=== PATIENT | female | born 1965 | race Caucasian/White ===

== ENCOUNTER → 2017-11-11 | Outpatient (CLI) | payer OTHER | LOC: M WHC 13:12 | DX: Z12.31 Encounter for screening mammogram for malignant neoplasm of breast (principal) | CPT/HCPCS: 77067 ==

== ENCOUNTER → 2019-10-06 | Outpatient (REF) | payer OTHER ==
[2019-10-06 19:00] LABS: AMORPHOUS SEDIMENT SMALL (NEGATIVE); APPEARANCE, URINE TURBID (CLEAR); BACTERIA, URINE AUTO 1+ (NEGATIVE); BILIRUBIN, URINE AUTO NEGATIVE (NEGATIVE); BLOOD, URINE BLOOD NEGATIVE (NEGATIVE); COLOR, URINE AMBER (YELLOW); GLUCOSE, URINE (UA) AUTO NEGATIVE (NEGATIVE); KETONE, URINE AUTO NEGATIVE (NEGATIVE); LEUKOCYTE ESTERASE, URINE AUTO NEGATIVE (NEGATIVE); MUCUS, URINE SMALL (NEGATIVE); NITRITE, URINE AUTO NEGATIVE (NEGATIVE); PROTEIN, URINE AUTO NEGATIVE (NEGATIVE); RBC, URINE AUTO 0 /HPF (0-3); SPECIFIC GRAVITY URINE AUTO 1.018 (1.002-1.035); SQUAMOUS EPITHELIAL CELL UR AU 3 /HPF (0-6); UROBILINOGEN, URINE AUTO 0.2 mg/dL (0.0-2.0); WBC, URINE AUTO 3 /HPF (0-3)
== END ==
LOC: M SMT 17:24
PROVIDERS: ATTEND Nurse Practitioner Women's Health
DX: R30.0 Dysuria (principal)

== ENCOUNTER → 2019-10-13 | Outpatient (CLI) | payer OTHER ==
--- NOTE | 2019-10-14 03:49 | REP ---
Clinical: Dysuria. Frequent urinary tract infection. Technique: Real time carballo scale evaluation using curved array transducer. Findings: Bilateral kidneys are normal in contour, size, echogenicity and reniform shape without hydronephrosis, nephrolithiasis, cystic or renal mass lesion. No perinephric fluid collection. Right kidney measures 10.4 x 5.5 x 4.6 cm. Left kidney measures 10.4 x 4.2 x 5.2 cm. Impression: Normal renal ultrasound. Electronically Signed by Miguelito Herrera MD 10/14/2019 03:40 A
--- NOTE | 2019-10-14 03:51 | REP ---
Clinical: Dysuria. Frequent urinary tract infection. Technique: Real time carballo scale and color evaluation using curved array transducer. Findings: Bladder is normal in appearance without wall thickening or obvious mass lesion. During examination, the bladder was incompletely distended. Prevoid bladder measures 101 ml. Postvoid images demonstrate complete emptying. Impression: Limited examination. No obvious abnormality. Electronically Signed by Miguelito Herrera MD 10/14/2019 03:42 A
== END ==
LOC: M RAD 13:36
PROVIDERS: ATTEND Nurse Practitioner Women's Health
DX: R30.0 Dysuria (principal); N39.0 Urinary tract infection, site not specified

== ENCOUNTER 2020-07-17 10:04 | Emergency (ER) | payer OTHER ==
[~2020-07-17] VITALS: Ht 160 cm; Wt 95.6 kg
[2020-07-17] MEDS ORDERED: SERT-138 PO (10:29)
[2020-07-17 10:36] LABS: BASO # 0.1 10^3/uL (0.0-0.2); BASO % 0.9 % (0.0-1.0); EOS # 0.2 10^3/uL (0.0-0.5); EOS % 2.3 % (0.0-3.0); HEMATOCRIT 29.8 % (36.0-47.0); HEMOGLOBIN 7.9 g/dl (12.0-15.5); LYMPH % 26.3 % (24.0-44.0); MEAN CORPUSCULAR HGB CONC 26.5 g/dl (32.0-36.5); MEAN CORPUSCULAR VOLUME 67.9 fl (80.0-96.0); MONO # 0.6 10^3/uL (0.0-0.8); NEUTROPHILS # 4.8 10^3/uL (1.5-8.5); NEUTROPHILS % 61.5 % (36.0-66.0); PLATELET COUNT, AUTOMATED 233 10^3/uL (150-450); RED BLOOD COUNT 4.39 10^6/uL (4.00-5.40); WHITE BLOOD COUNT 7.7 10^3/uL (4.0-10.0)
[2020-07-17] MEDS ORDERED: GI COCKTAIL 50ML BTL(HYOSCYAMINE/MAALOX/LIDOCAINE VISCOUS)(1:3:1) PO ONE (10:45)
[2020-07-17 10:46] LABS: INR 0.89; PROTHROMBIN TIME 12.2 SECONDS (12.5-14.3)
[2020-07-17 10:47] LABS: PARTIAL THROMBOPLASTIN TIME 25.3 SECONDS (24.2-38.5)
[2020-07-17 11:10] LABS: BLOOD UREA NITROGEN 12 MG/DL (7-18); CALCIUM LEVEL 9.2 MG/DL (8.5-10.1); CARBON DIOXIDE LEVEL 24 MEQ/L (21-32); CHLORIDE LEVEL 106 MEQ/L (98-107); CREATININE FOR GFR 0.77 MG/DL (0.55-1.30); GLOMERULAR FILTRATION RATE > 60.0 (>51); GLUCOSE, FASTING 99 MG/DL (70-100); POTASSIUM SERUM 4.2 MEQ/L (3.5-5.1); SODIUM LEVEL 139 MEQ/L (136-145)
[2020-07-17 11:11] LABS: ALBUMIN 3.6 GM/DL (3.2-5.2); ALT/SGPT 28 U/L (12-78); BILIRUBIN,DIRECT 0.2 MG/DL (0.0-0.2); BILIRUBIN,TOTAL 0.5 MG/DL (0.2-1.0); CK-MB VALUE MASS 1.8 NG/ML (<3.6); CPK CREATINE PHOSPHOKINASE 71 U/L (26-192); FREE T4 0.83 NG/DL (0.76-1.46); LIPASE 161 U/L (73-393); MB/CK RELATIVE INDEX 2.54 (< OR =4); TOTAL PROTEIN 7.2 GM/DL (6.4-8.2); TROPONIN I < 0.02 NG/ML (< 0.10)
--- NOTE | 2020-07-17 11:12 | REP ---
INDICATION: CHEST PAIN. COMPARISON: 11/18/2008. TECHNIQUE: SINGLE PORTABLE AP VIEW OF THE CHEST WAS PERFORMED. FINDINGS: There is mild elevation of the right knee diaphragm. There is mild linear fibro atelectatic change in each lung base. No acute infiltrate or pulmonary edema is seen. The heart is normal in size. The mediastinal silhouette is unchanged. Metallic clips are seen in the upper abdomen. IMPRESSION: NO ACUTE PULMONARY DISEASE. <Electronically signed by John Sung > 07/17/20 [id number]
[2020-07-17] MEDS ORDERED: ISOVUE-370 76% 100ML VIAL As Ordered ONE (11:17)
--- NOTE | 2020-07-17 12:14 | REP ---
INDICATION: left sided chest pain. COMPARISON: None. TECHNIQUE: CT angiogram chest performed following the intravenous administration of 100 cc of Isovue 370. Sagittal and coronal reconstruction images are performed. FINDINGS: Lungs: There is mild bibasilar fibro atelectatic change, although underlying pneumonitis cannot be excluded.. Mediastinum: No adenopathy. Pulmonary arteries: No evidence of pulmonary embolism. Elvira: No adenopathy. Axilla: No adenopathy. Pleura: No effusion. Heart: Not enlarged. Thoracic aorta: No aneurysm or dissection. Upper abdominal structures: Prior gastric surgery. Visualized osseous structures: Unremarkable. IMPRESSION: No CT evidence of pulmonary embolism. No aortic dissection. Nonspecific hazy ground-glass and interstitial opacities scattered throughout both lower lung zones may represent fibro atelectatic change, but underlying pneumonitis cannot be excluded. <Electronically signed by John Sung > 07/17/20 [id number]
[2020-07-17 14:46] LABS: CK-MB VALUE MASS 1.5 NG/ML (<3.6); CPK CREATINE PHOSPHOKINASE 72 U/L (26-192); MB/CK RELATIVE INDEX 2.08 (< OR =4); TROPONIN I < 0.02 NG/ML (< 0.10)
[2020-07-17] MEDS ORDERED: SUCR1TA PO (16:03)
[2020-07-17] MEDS ORDERED: OMEP40CA97 PO (16:03)
[2020-07-17 16:10] VITALS: BP 139/62
--- NOTE | 2020-07-18 08:47 | ECGEPIP ---
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
--- NOTE | 2020-07-18 08:51 | ECGEPIP ---
[facility] - ED Test Date: 2020-07-17 Pat Name: HIMANSHU GUARDADO Department: Room: - Gender: Female Marketing Support Manager: luz elena : 1965 Requested By: LISA Ramires Order Number: [id number] Reading MD: Rafaela Bond Measurements Intervals [place] Rate: 58 P: 9 W[place]: 158 QRS: -29 QRSD: 143 T: -12 QT: 459 QTc: 454 Interpretive Statements SINUS BRADYCARDIA BORDERLINE LEFT AXIS DEVIATION RIGHT BUNDLE BRANCH BLOCK SIMILAR 07/17/20 Electronically Signed on 07-18-2020 8:51:04 EST by Rafaela Bond
== END 2020-07-17 16:16 | disposition home or self-care (01) ==
LOC: M ED 10:04
DX: I44.4 Left anterior fascicular block (principal); I45.10 Unspecified right bundle-branch block; Z98.84 Bariatric surgery status; Z88.8 Allergy status to other drugs, medicaments and biological substances; Z87.891 Personal history of nicotine dependence
CPT/HCPCS: 36415; 71045; 71275; 80048; 80076; 82550; 82553; 83690; 84439; 84443; 84484; 85025; 85610; 85730; 93005; 93041; 94760; 99285; Q9967

== ENCOUNTER → 2021-02-21 | Outpatient (REF) | payer OTHER ==
[~2021-02-21] MED LIST: OMEP40CA4 PO; SERT-138 PO; SUCR1TA PO
== END ==
LOC: M LAB REF 19:25
PROVIDERS: ATTEND Dermatology
DX: L90.5 Scar conditions and fibrosis of skin (principal)

== ENCOUNTER 2021-06-30 23:07 | Inpatient (IN) | payer OTHER ==
[~2021-06-30] VITALS: Ht 160 cm; Wt 93.0 kg
[2021-06-30] MEDS ORDERED: NS 1,000 ML IV ONE (23:15)
[2021-06-30] MEDS ORDERED: LISI20TA33 PO (23:16)
[2021-06-30] MEDS ORDERED: VENL75CA47 PO (23:16)
[2021-06-30 23:42] LABS: BASO # 0.1 10^3/uL (0.0-0.2); BASO % 1.1 % (0.0-1.0); EOS # 0.3 10^3/uL (0.0-0.5); EOS % 3.4 % (0.0-3.0); HEMATOCRIT 31.6 % (36.0-47.0); HEMOGLOBIN 8.6 g/dl (12.0-15.5); LYMPH # 2.8 10^3/uL (1.5-5.0); LYMPH % 33.9 % (24.0-44.0); MEAN CORPUSCULAR HEMOGLOBIN 18.9 pg (27.0-33.0); MEAN CORPUSCULAR HGB CONC 27.2 g/dl (32.0-36.5); MEAN CORPUSCULAR VOLUME 69.6 fl (80.0-96.0); MONO # 0.5 10^3/uL (0.0-0.8); MONO % 6.5 % (2.0-8.0); NEUTROPHILS # 4.5 10^3/uL (1.5-8.5); NEUTROPHILS % 54.5 % (36.0-66.0); PLATELET COUNT, AUTOMATED 270 10^3/uL (150-450); RED BLOOD COUNT 4.54 10^6/uL (4.00-5.40); WHITE BLOOD COUNT 8.2 10^3/uL (4.0-10.0)
[2021-06-30 23:50] LABS: AMPHETAMINES LEVEL URINE NEGATIVE (NEGATIVE); BARBITURATES URINE NEGATIVE (NEGATIVE); BENZODIAZEPINES URINE NEGATIVE (NEGATIVE); CANNABINOIDS URINE NEGATIVE (NEGATIVE); COCAINE METABOLITE URINE NEGATIVE (NEGATIVE); METHADONE URINE NEGATIVE (NEGATIVE); OPIATES URINE NEGATIVE (NEGATIVE); PHENCYCLIDINE URINE NEGATIVE (NEGATIVE)
[2021-07-01 00:16] LABS: HCG, SERUM QUALITATIVE NEGATIVE (NEGATIVE)
[2021-07-01 00:19] LABS: BLOOD UREA NITROGEN 10 MG/DL (7-18); CALCIUM LEVEL 8.7 MG/DL (8.5-10.1); CARBON DIOXIDE LEVEL 22 MEQ/L (21-32); CHLORIDE LEVEL 112 MEQ/L (98-107); CREATININE FOR GFR 0.65 MG/DL (0.55-1.30); GLOMERULAR FILTRATION RATE > 60.0 (>51); GLUCOSE, FASTING 96 MG/DL (70-100); SODIUM LEVEL 143 MEQ/L (136-145)
[2021-07-01 00:20] LABS: ACETAMINOPHEN LEVEL < 2.0 UG/ML (10.0-30.0); ALBUMIN 3.4 GM/DL (3.2-5.2); ALT/SGPT 53 U/L (12-78); BILIRUBIN,DIRECT < 0.1 MG/DL (0.0-0.2); BILIRUBIN,TOTAL < 0.1 MG/DL (0.2-1.0); ETHYL ALCOHOL (ETHANOL) 0.207 % (0.000-0.010); SALICYLATE LEVEL < 1.7 MG/DL (5.0-30.0)
[2021-07-01] MEDS ORDERED: HOME MED LIST COMPLETE! XX SCH (06:20)
[2021-07-01] MEDS ORDERED: MOM 30ML SUSPENSION UDC PO PRN (09:20)
[2021-07-01] MEDS ORDERED: traZODone 50 MG TAB PO PRN (09:20)
[2021-07-01] MEDS ORDERED: MAALOX 30 ML SUSP *UDC PO PRN (09:20)
[2021-07-01] MEDS: VENLAFAXINE **XR** 75MG CAPSULE PO SCH (09:50)
[2021-07-01 11:16] VITALS: BP 138/74
[2021-07-01 16:17] VITALS: BP 152/92
[2021-07-02 06:37] VITALS: BP 166/93
[2021-07-02] MEDS: VENLAFAXINE **XR** 75MG CAPSULE PO SCH (08:55)
[2021-07-02] MEDS: ISOSORBIDE DIN (ISORDIL) 10MG TAB PO SCH ×2 (12:00→17:50)
[2021-07-02] MEDS ORDERED: IRON SUCROSE 100MG 5ML VIAL (J1756 PER 1MG) IV ONE (13:00)
[2021-07-02 13:38] LABS: HEMATOCRIT 36.6 % (36.0-47.0); HEMOGLOBIN 9.8 g/dl (12.0-15.5)
[2021-07-02 14:07] LABS: PERCENT SATURATION 3.3 % (13.2-45.0)
[2021-07-02] MEDS: SUCRALFATE 1 GM TAB PO SCH ×2 (14:46→17:46)
[2021-07-02] MEDS: OMEPRAZOLE 20 MG CAP PO SCH (14:46)
[2021-07-02 19:00] VITALS: BP 154/88
[2021-07-02] MEDS: ACETAMINOPHEN TAB 650MG DOSE (2X325MG) PO PRN (23:20)
[2021-07-03 06:32] VITALS: BP 133/79
[2021-07-03] MEDS: ISOSORBIDE DIN (ISORDIL) 10MG TAB PO SCH ×3 (06:47→17:00)
[2021-07-03] MEDS: SUCRALFATE 1 GM TAB PO SCH ×3 (08:32→17:35)
[2021-07-03] MEDS: OMEPRAZOLE 20 MG CAP PO SCH (08:34)
[2021-07-03] MEDS: ACETAMINOPHEN TAB 650MG DOSE (2X325MG) PO PRN ×2 (08:35→21:13)
[2021-07-03] MEDS: VENLAFAXINE **XR** 75MG CAPSULE PO SCH (08:35)
[2021-07-03] MEDS: NALTREXONE 50 MG TAB PO SCH (12:34)
[2021-07-03 19:07] VITALS: BP 127/74
[2021-07-04] MEDS: ISOSORBIDE DIN (ISORDIL) 10MG TAB PO SCH (06:18)
[2021-07-04 06:19] VITALS: BP 120/56
[2021-07-04] MEDS ORDERED: SUCR1TA PO (08:54)
[2021-07-04] MEDS ORDERED: AMLO1TAB25 PO (08:54)
[2021-07-04] MEDS ORDERED: VENL75CA47 PO (08:54)
[2021-07-04] MEDS ORDERED: OMEP-173 PO (08:54)
[2021-07-04] MEDS ORDERED: NALT50TA4 PO (08:54)
[2021-07-04] MEDS ORDERED: TRAZ-252 PO (08:54)
[2021-07-04 09:00] VITALS: BP 126/75
[2021-07-04] MEDS: SUCRALFATE 1 GM TAB PO SCH (09:29)
[2021-07-04] MEDS: OMEPRAZOLE 20 MG CAP PO SCH (09:30)
[2021-07-04] MEDS: NALTREXONE 50 MG TAB PO SCH (09:31)
[2021-07-04] MEDS: VENLAFAXINE **XR** 75MG CAPSULE PO SCH (09:31)
== END 2021-07-04 11:43 | disposition home or self-care (01) | DRG 880 ==
LOC: M ED 23:07 → M ED INP 07-01 09:17 → M PSY 07-01 11:18
PROVIDERS: ADMIT Psychiatry & Neurology Psychiatry; ATTEND Student in an Organized Health Care Education/Training Program
DX: F41.8 Other specified anxiety disorders (principal); F43.10 Post-traumatic stress disorder, unspecified; F60.3 Borderline personality disorder; Z79.899 Other long term (current) drug therapy; Z88.6 Allergy status to analgesic agent; F43.21 Adjustment disorder with depressed mood; D50.9 Iron deficiency anemia, unspecified; E66.9 Obesity, unspecified; I10 Essential (primary) hypertension

== ENCOUNTER 2021-07-26 08:26 | Outpatient (CLI) | payer OTHER ==
[~2021-07-26] VITALS: Ht 160 cm; Wt 92.1 kg
[~2021-07-26 08:26] MED LIST changes: +ACETAMINOPHEN TAB 650MG DOSE (2X325MG) PO ONE; +ALBUTEROL SULFATE 2.5 MG/0.5 ML INH NEB SOLN INH PRN; +AMLO1TAB25 PO; +EPINEPHrine INJ 1 MG/ML 1ML AMP IM PRN; +IRON SUCROSE 200 MG in NS 100 ML OVER 1 HR IV ONE; +LISI20TA33 PO; +NALT50TA4 PO; +NS 1,000 ML IV SCH; +OMEP-173 PO; +TRAZ-252 PO; +VENL75CA47 PO; +diphenhydrAMINE 50MG/ML VIAL (J1200) IV PRN; +methylPREDNISolone 125MG 2ML VIAL IV PRN
[2021-07-26 08:42] VITALS: BP 119/73
[2021-07-26 10:00] VITALS: BP 121/63
== END 2021-07-26 10:20 | disposition home or self-care (01) ==
LOC: M INFU 08:26
PROVIDERS: ATTEND Family Medicine
DX: D50.9 Iron deficiency anemia, unspecified (principal); Z88.6 Allergy status to analgesic agent
CPT/HCPCS: 96365; J1756

== ENCOUNTER → 2021-08-27 | Outpatient (CLI) | payer OTHER ==
[~2021-08-27] MED LIST changes: -ACETAMINOPHEN TAB 650MG DOSE (2X325MG) PO ONE; -ALBUTEROL SULFATE 2.5 MG/0.5 ML INH NEB SOLN INH PRN; -EPINEPHrine INJ 1 MG/ML 1ML AMP IM PRN; -IRON SUCROSE 200 MG in NS 100 ML OVER 1 HR IV ONE; -NS 1,000 ML IV SCH; -diphenhydrAMINE 50MG/ML VIAL (J1200) IV PRN; -methylPREDNISolone 125MG 2ML VIAL IV PRN
== END ==
LOC: M WHC 09:06
PROVIDERS: ATTEND Family Medicine
DX: Z12.31 Encounter for screening mammogram for malignant neoplasm of breast (principal)

== ENCOUNTER → 2023-02-03 | Outpatient (CLI) | payer OTHER | LOC: M WHC 11:16 | PROVIDERS: ATTEND Family Medicine | DX: Z12.31 Encounter for screening mammogram for malignant neoplasm of breast (principal) ==

== ENCOUNTER → 2023-11-18 | Outpatient (CLI) | payer OTHER | LOC: M CARPUL 13:05 | PROVIDERS: ATTEND Internal Medicine | DX: R60.9 Edema, unspecified (principal) ==

== ENCOUNTER → 2024-04-22 | Outpatient (CLI) | payer OTHER | LOC: M WHC 08:36 | PROVIDERS: ATTEND Internal Medicine | DX: Z12.31 Encounter for screening mammogram for malignant neoplasm of breast (principal); R92.313 Mammographic fatty tissue density, bilateral breasts ==